=== PATIENT | female | born 2000 | race Two or more races ===

== ENCOUNTER 2018-11-23 13:17 | Emergency (ER) | payer OTHER ==
[2018-11-23] MEDS ORDERED: ACETAMINOPHEN 1000 MG/100 ML VIAL (NON FORMULARY) IVPB ONE (13:54)
[2018-11-23] MEDS ORDERED: SODIUM CHLORIDE 0.9% 500 ML INFUS.BAG IV ONE (13:54)
[2018-11-23 14:13] VITALS: TEMP 98.5; BMI 23.4
[2018-11-23] MEDS ORDERED: ACETAMINOPHEN INJECTION 100 ML IVPB ONE (14:18)
--- NOTE | 2018-11-23 14:20 | PDOC ---
History of Present Illness - General Chief Complaint: Respiratory Stated Complaint: SOB Time Seen by Provider: 11/23/18 13:19 History Source: Patient - History of Present Illness Initial Comments: 11/23/18 13:56 Ms. Lopez is a 18 y/o F with no PMH presenting two weeks post- after a syncopal episode. She reports that she gave two weeks ago, and that the baby is still in the [facility] NICU after a delivery. She reports that she was waiting for her boyfriend to go visit the baby inside of a store, when she decided to step outside to get some sun. She reports going back into the store, and shortly after her re-entry she began experiencing palpitations and lightheadedness. She reports that someone from the store helped lower her to the ground. She denies any LOC, she reports remembering the entire event, and she denies any head or neck injury. She reports experiencing stress upon realizing that her boyfriend was likely not coming for the visit to the hospital, and was tearful throughout the interview as she is now unable to visit her baby in the NICU. Per EMS, initial HR en route was 130, and she was normotensive with normal O2% but experiencing mild SOB. Upon her arrival she was tearful, initial HR 110s which quickly lowered to the 70s upon settling into the room. She reports mild chest pain on the left side of her chest with no radiation, as well as mild headache localized to the front of her head. She denies any fever, chills, fatigue, confusion, or ongoing palpitations. Past History - Past Medical History Allergies/Adverse Reactions: Allergies Allergy/AdvReac Type Severity Reaction Status Date / Time No Known Allergies Allergy Verified 11/23/18 13:52 Home Medications: Ambulatory Orders No Home Medications 0 dose .ROUTE UTDICT 04/24/12 COPD: No - Suicide/Smoking/Psychosocial Hx Smoking Status: No Smoking History: Never smoked Number of Cigarettes Smoked Daily: 0 Information on smoking cessation initiated: No Hx Alcohol Use: No Drug/Substance Use Hx: No Review of Systems - Review of Systems Able to Perform ROS?: Yes Comments:: 11/23/18 14:36 ROS: GENERAL/CONSTITUTIONAL: No fever or chills. No weakness. HEAD, EYES, EARS, NOSE AND THROAT: No change in vision. No ear pain or discharge. No sore throat. CARDIOVASCULAR: Chest pain. No shortness of breath RESPIRATORY: No cough, wheezing, or hemoptysis. GASTROINTESTINAL: No nausea, vomiting, diarrhea or constipation. GENITOURINARY: No dysuria, frequency, or change in urination. MUSCULOSKELETAL: No joint or muscle swelling or pain. No neck or back pain. SKIN: No rash NEUROLOGIC: No headache, vertigo, loss of consciousness, or change in strength/ sensation. ENDOCRINE: No increased thirst. No abnormal weight change HEMATOLOGIC/LYMPHATIC: No anemia, easy bleeding, or history of blood clots. ALLERGIC/IMMUNOLOGIC: No hives or skin allergy. *Physical Exam - Vital Signs Last Vital Signs Temp Pulse Resp BP Pulse Ox 98.5 F 77 16 114/85 100 11/23/18 13:20 11/23/18 13:20 11/23/18 13:20 11/23/18 13:20 11/23/18 13:20 - Physical Exam Comments: 11/23/18 14:38 PE: GENERAL: Awake, alert, and fully oriented, tearful HEAD: No signs of trauma, normocephalic, atraumatic EYES: PERRLA, EOMI, sclera anicteric, conjunctiva clear ENT: Auricles normal inspection, hearing grossly normal, nares patent, oropharynx clear without exudates. Moist mucosa NECK: Normal ROM, supple, no lymphadenopathy, JVD, or masses LUNGS: No distress, speaks full sentences, clear to auscultation bilaterally HEART: Regular rate and rhythm, normal S1 and S2, no murmurs, rubs or gallops, peripheral pulses normal and equal bilaterally. ABDOMEN: Soft, nontender, normoactive bowel sounds. No guarding, no rebound. No masses EXTREMITIES : Normal inspection, Normal range of motion, no edema. No clubbing or cyanosis. NEUROLOGICAL: Normal speech, no focal sensorimotor deficits SKIN: Warm, Dry, normal turgor, no rashes or lesions noted ED Treatment Course - LABORATORY CBC & Chemistry Diagram: 11/23/18 14:24 11/23/18 14:24 - RADIOLOGY Radiology Studies Ordered: Category Date Time Status CHEST X-RAY PORTABLE* [RAD] Stat Radiology 11/23/18 13:53 Ordered Medical Decision Making - Medical Decision Making 11/23/18 14:28 18 y/o F with recent delivery 2 weeks ago p/w near syncope, chest pain, initially tachycardic now resolved with normal O2 saturation. Most likely representing vasovagal near-syncope given life stressors and acute concern over partner, but PE also possible given post- period, chest pain, tachycardia. PE less likely given spontaneous resolution of tachycardia and normal oxygen saturation. Plan: CBC CMP EKG CXR Cardiac profile CTA pending discussion with attending. Well's score: 4.5 initially (3 - story, 1.5 - tachycardia). Tachycardia now resolved. Dispo: Pending labs, imaging --- Labs wnl --- Case discussed with Dr. Puentes. Given tachycardia, recent delivery, plan for CT PE. --- CTA - negative for acute process. Plab for discharge home. Follow up and return precautions as noted in discharge. *DC/Admit/Observation/Transfer Diagnosis at time of Disposition: Vasovagal near syncope - Discharge Dispostion Disposition: HOME Condition at time of disposition: Stable Decision to Admit order: No - Referrals - Patient Instructions Printed Discharge Instructions: DI for Syncope in Adults (Fainting) Additional Instructions: You were evaluated in the Emergency Department after nearly fainting. We evaluated your symptoms, checked your blood work, and did a CT of your lungs to evaluate for a possible clot in your lungs. We do not see evidence of a blood clot in your lungs, and believe that it is safe for you to go home at this time. Please follow up with your primary care doctor within the next [address] also noted lung nodules and some enlarged lymph nodes - please follow up with your primary care doctor as they will have further recommendations on that. - Post Discharge Activity
[2018-11-23 14:40] LABS: BASO % 1.2 % (0-2.0); EOS % 1.4 % (0-4.5); HEMATOCRIT 34.3 % (32.4-45.2); HEMOGLOBIN 11.4 GM/dL (10.7-15.3); LYMPH % 16.3 % (8-40); MCH 29.1 pg (25.7-33.7); MCHC 33.2 g/dl (32.0-36.0); MEAN CELL VOLUME 87.6 fl (80-96); MEAN PLT VOLUME 9.2 fl (7.5-11.1); NEUT % 75.1 % (42.8-82.8); PLATELET COUNT 276 K/MM3 (134-434); RBC 3.91 M/mm3 (3.60-5.2); RDW 15.1 % (11.6-15.6)
[2018-11-23 14:55] LABS: INR 1.13 (0.83-1.09); PROTHROMBIN TIME (PATIENT) 13.4 SEC (9.7-13.0)
[2018-11-23 14:57] LABS: ACTIVATED PTT 30.5 SECONDS (25.2-36.5)
[2018-11-23 15:09] LABS: ALBUMIN 3.2 g/dl (3.4-5.0); ALK PHOS 118 U/L (45-117); ANION GAP 7 MMOL/L (8-16); BILIRUBIN,TOTAL 0.5 mg/dL (0.2-1); BLOOD UREA NITROGEN 11.7 mg/dL (7-18); CALCIUM 8.4 mg/dL (8.5-10.1); CHLORIDE 111 mmol/L (98-107); CO2 24 mmol/L (21-32); CREATININE 0.6 mg/dL (0.55-1.3); GLUCOSE,RANDOM 94 mg/dL (74-106); POTASSIUM 3.2 mmol/L (3.5-5.1); SGOT/AST 25 U/L (15-37); SGPT/ALT 28 U/L (13-61); SODIUM 143 mmol/L (136-145); TOT PROT 6.5 g/dl (6.4-8.2)
[2018-11-23 15:31] LABS: HYALINE CASTS 0 /lpf (0-8); PH,URINE 7.5 (5.0-8.0); URINE APPEARANCE CLEAR; URINE BACTERIA 0.7 /hpf (NEGATIVE); URINE BILIRUBIN NEGATIVE (NEGATIVE); URINE COLOR YELLOW; URINE GLUCOSE (UA) NEGATIVE (NEGATIVE); URINE KETONE NEGATIVE (NEGATIVE); URINE LEUK ESTERASE TRACE (NEGATIVE); URINE NITRITE NEGATIVE (NEGATIVE); URINE PROTEIN NEGATIVE (NEGATIVE); URINE RBC 1 /hpf (0-4); URINE UROBILINOGEN 0.2 mg/dL (0.2-1.0); URINE WBC 2 /hpf (0-5)
--- NOTE | 2018-11-23 16:35 | PDOC ---
Documentation entered by Mary Kate Au SCRIBE, acting as scribe for Lizbeth Puentes MD. Lizbeth Puentes MD: This documentation has been prepared by the scribe, Mary Kate Au SCRIBE, under my direction and personally reviewed by me in its entirety. I confirm that the documentation accurately reflects all work, treatment, procedures, and medical decision making performed by me. Attending Attestation - Resident Resident Name: AlexanderSaurav - ED Attending Attestation I have performed the following: I have examined & evaluated the patient, The case was reviewed & discussed with the resident, I agree w/resident's findings & plan, Exceptions are as noted - HPI HPI: 11/23/18 14:29 The patient is a 18-year-old female, with no past medical history, who presents to the ED with lightheadedness today. The patient states that she had a premature delivery 2 weeks ago at [facility] (unsure why, but possibly due to her previous misscarriage). She reports that she went to visit the baby at the hospital today and after going outside for air, she began to feel lightheaded and developed palpitations. One of the hospital workers noted the patient appeared faint and grabbed her. She denies any syncope and remembers the event. The patient denies fevers, chills, nausea, vomiting, diarrhea, or abdominal pain. Denies any chest pain or shortness of breath. Allergies: NKA - Physicial Exam PE: 11/23/18 14:35 GENERAL: Awake, alert, and fully oriented, in no acute distress HEAD: No signs of trauma EYES: PERRLA, EOMI, sclera anicteric, conjunctiva clear ENT: Auricles normal inspection, hearing grossly normal, nares patent, oropharynx clear without exudates. Moist mucosa NECK: Normal ROM, supple, no lymphadenopathy, JVD, or masses LUNGS: Breath sounds equal, clear to auscultation bilaterally. No wheezes, and no crackles HEART: Regular rate and rhythm, normal S1 and S2, no murmurs, rubs or gallops ABDOMEN: Soft, nontender, normoactive bowel sounds. No guarding, no rebound. No masses EXTREMITIES: Normal range of motion, no edema. No clubbing or cyanosis. No cords, erythema, or tenderness NEUROLOGICAL: Cranial nerves II through XII grossly intact. Normal speech SKIN: Warm, Dry, normal turgor, no rashes or lesions noted. - Medical Decision Making 11/23/18 16:34 Pt presents to the ED complaining of chest pain and presyncope. Recently post . D dimer is positive. Will check CT PE.,
[2018-11-23 17:47] VITALS: BP 112/64; PULSE 70
--- NOTE | 2018-11-24 11:32 | EKG ---
Test Reason : Blood Pressure : / mmHG Vent. Rate : 076 BPM Atrial Rate : 076 BPM P-R Int : 136 ms QRS Dur : 086 ms QT Int : 392 ms P-R-T Axes : 075 098 049 degrees QTc Int : 441 ms POOR DATA QUALITY, INTERPRETATION MAY BE ADVERSELY AFFECTED NORMAL SINUS RHYTHM RIGHTWARD AXIS BORDERLINE ECG NO PREVIOUS ECGS AVAILABLE Confirmed by SAMY RODRIGUEZ MD ([id number]) on 11/24/2018 11:32:27 AM Referred By: Confirmed By:SAMY RODRIGUEZ MD
== END 2018-11-23 17:15 | disposition home or self-care (01) ==
LOC: JER 13:17
PROC: 3E033NZ Introduction of Analgesics, Hypnotics, Sedatives into Peripheral Vein, Percutaneous Approach (ICD-10-PCS; principal; 2018-11-23)
PROC: 3E0337Z Introduction of Electrolytic and Water Balance Substance into Peripheral Vein, Percutaneous Approach (ICD-10-PCS; 2018-11-23)
DX: R55 Syncope and collapse (principal)
CPT/HCPCS: 36415; 71045-TC-FY; 71275-TC; 80053; 81003; 82550; 84484; 85025; 85379; 85610; 85730; 93005; 93010; 96361; 96374; 99284-25; J0131